=== PATIENT | female | born 1975 | race Caucasian/White ===

== ENCOUNTER 2018-10-09 15:53 | Emergency (ER) | payer OTHER ==
[~2018-10-09] VITALS: Ht 165.1 cm; Wt 50.8 kg
[2018-10-09] MEDS ORDERED: BUPROPION XL300 MG PO (16:17)
[2018-10-09] MEDS ORDERED: MONO-LINYAH1 EACH PO (16:17)
[2018-10-09] MEDS ORDERED: KETOROLAC TROME10 MG PO (16:39)
[2018-10-09] MEDS ORDERED: BACLOFEN10 MG PO (16:39)
== END 2018-10-09 16:48 | disposition home or self-care (01) ==
LOC: ED 15:53
DX: M99.01 Segmental and somatic dysfunction of cervical region (principal); M99.02 Segmental and somatic dysfunction of thoracic region; M62.838 Other muscle spasm; Z88.0 Allergy status to penicillin; Z79.899 Other long term (current) drug therapy
CPT/HCPCS: 99283

== ENCOUNTER 2021-09-30 17:23 | Emergency (ER) | payer OTHER ==
[~2021-09-30] VITALS: Ht 165.1 cm; Wt 50.8 kg
[~2021-09-30 17:23] MED LIST: BACLOFEN10 MG PO; BUPROPION XL300 MG PO; KETOROLAC TROME10 MG PO; MONO-LINYAH1 EACH PO
[2021-09-30] MEDS ORDERED: CARAFATE1 GM PO (20:18)
[2021-09-30] MEDS ORDERED: ZOFRAN4 MG PO (20:18)
[2021-09-30] MEDS ORDERED: HYDROCODON-ACE1 EA10 PO (20:18)
== END 2021-09-30 20:44 | disposition home or self-care (01) ==
LOC: ED 17:23
DX: K29.70 Gastritis, unspecified, without bleeding (principal); Z88.0 Allergy status to penicillin; Z79.899 Other long term (current) drug therapy; Z20.822 Contact with and (suspected) exposure to COVID-19
CPT/HCPCS: 80053; 81001; 83690; 84703; 85025; 96374; 96375; 99284-25; A9270; C9803; J2270; J2405; J7030; U0003

== ENCOUNTER 2023-10-10 06:58 | Day surgery (SDC) | payer OTHER ==
[2023-09-17 14:48] VITALS: BP 113/75
[~2023-10-10] VITALS: Ht 165.1 cm; Wt 58.2 kg
--- NOTE | ~2023-10-10 | OR ---
[facility] [address] [place], [place] [address] Draft DATE OF OPERATION: 10/10/2023 SURGEON: Lexus Holm MD SECURITY SME: [place]. PREOPERATIVE DIAGNOSIS: Pelvic pain. POSTOPERATIVE DIAGNOSES: Pelvic pain, pelvic endometriosis. PROCEDURES: Laparoscopy with laser fulguration of endometriosis, excision of posterior cul-de-sac nodule. ANESTHESIA: General ET. ESTIMATED BLOOD LOSS: Minimal. DRAINS: None. INDICATIONS AND FINDINGS: The patient is a 48-year-old female who has been having increasing pelvic pain. She does have a history of endometriosis. At this point, she desired diagnosis as well as treatment. At the time of surgery, exam under anesthesia was completely normal. At the time of laparoscopy, there was endometriosis noted over the surface of the left ovary, small area on the left tube as well as in the left anterior cul-de-sac. There was a small spot on the right tube and the right sidewall above the pelvic brim. There was also a small area in the right posterior ovarian fossa. There was a nodule in the posterior cul-de-sac, which was excised. The appendix appeared normal. PROCEDURE IN DETAIL: The patient was prepped and draped in the dorsal lithotomy position. A weighted speculum was placed. The anterior lip of the cervix was visualized and grasped with single-tooth tenaculum. The Hulka clamp was then placed and the tenaculum and speculum PATIENT NAME: AMMY SANDHU LUKAS OPERATIVE REPORT DATE OF : 75 REPORT #: [id number] PHYSICIAN: LEXUS HOLM MD PCP: SEGUNDO VILLALPANDO REPORT IS CONFIDENTIAL AND NOT TO BE RELEASED WITHOUT AUTHORIZATION [facility] [address] [place], [place] [address] Draft were removed. Attention was directed above. The infraumbilical area was injected with 0.5% Marcaine plain. An incision made with a knife. Each layer was serially elevated and incised until the fascia was opened and identified and stay sutures of 0 Vicryl were placed. Peritoneum was opened bluntly. The Romel cannula was placed. The balloon inflated. The abdomen was inflated with carbon dioxide gas. The abdomen was appropriately distended. The pelvis was visualized and the secondary port was placed on the left side slightly below the level of the umbilicus and lateral. This area was transilluminated, injected with the Marcaine, incision made with a knife and a 5 mm port placed under direct vision. The pelvis was visualized and the endometriosis noted. It was felt that a secondary another port was necessary on the right side. This was placed in the same manner and essentially at the same location. The CO2 laser fiber was then used. This was used to power of 10 on SuperPulse. The laser was used to coagulate the area on the right tube, the right abdominal sidewall and the right posterior ovarian fossa. This was also used for the left anterior cul-de-sac and over the surface of the left ovary and the surface of the left tube. Good hemostasis was noted for all of these. The nodule in the posterior cul-de-sac was grasped and was undermined using Metzenbaum scissors and excised completely and the specimen retrieved. The abdomen was then copiously irrigated, inspected, and there was no evidence of any further endometriosis found. There was good hemostasis. Overall, the sites treated including the cul-de-sac and the procedure was terminated. The instruments removed from the abdomen after allowing as much CO2 as possible to escape. The fascial incision at the umbilicus was re-identified. It was closed with a running suture of 0 Vicryl. The stay sutures were tied across as well. The skin incisions were closed with subcuticular sutures of 3-0 Vicryl Rapide. Attention was directed down below and the instruments removed. There was no evidence of any ongoing bleeding. A Mora catheter which had been placed at the beginning of the case was removed. All sponge and needle counts were correct. She tolerated the procedure well and was taken to recovery room in good condition. MD RAQUEL English/ARIANAL /[id number] Copies: PATIENT NAME: AMMY SANDHU OPERATIVE REPORT DATE OF : 75 REPORT #: [id number] PHYSICIAN: LEXUS HOLM MD PCP: SEGUNDO VILLALPANDO REPORT IS CONFIDENTIAL AND NOT TO BE RELEASED WITHOUT AUTHORIZATION [facility] [address] [place] [id number] Draft ~ PATIENT NAME: EDSONAMMY OPERATIVE REPORT DATE OF : 75 REPORT #: [id number] PHYSICIAN: LEXUS HOLM MD PCP: SEGUNDO VILLALPANDO REPORT IS CONFIDENTIAL AND NOT TO BE RELEASED WITHOUT AUTHORIZATION
[~2023-10-10 06:58] MED LIST changes: +ACID CONTROLLER20 MG PO; +CARAFATE1 GM PO; +HYDROCODON-ACE1 EA10 PO; +OMEPRAZOLE20 MG PO; +ZOFRAN4 MG PO
[2023-10-10 07:13] VITALS: BP 112/70
--- NOTE | 2023-10-10 07:49 | NUR ---
requested and put warm blanket on.
--- NOTE | 2023-10-10 11:09 | NUR ---
10/10/23 1109 Lakisha Choi 1029 PT ARRIVED IN PACU NON RESPONSIVE TO NOXIOUS STIMULI WITH OPA IN PLACE. CHIN LIFT HELD BY RN. 1034 PT REACTIVE. OPA REMOVED. 1035 C/O FEELING COLD. WARM BLANKETS GIVEN. 1046 C/O ABD PAIN 3/10. TYLENOL 1GM GIVEN IV. 1057 C/O INCREASED ABD PAIN 5/10. FENTANYL 25MCG GIVEN IVP. 1102 NO CHANGE IN PAIN LEVEL. FENTANYL 25MCG GIVEN IVP. 1108 RESTING. REU.
[2023-10-10 11:20] VITALS: BP 99/58
--- NOTE | 2023-10-10 11:47 | NUR ---
1120: PT RETURNS TO UNIT FROM PACU VIA STRETCHER, DROWSY ON ARRIVAL. FOLLOWS COMMANDS AND ANSWERS QUESTIONS APPROPRIATELY. VSS, RESP EVEN AND UNLABORED ON RA. REPORTS BRYSON PAIN LEVEL, /10. DENIES NAUSEA AND ICE WATER PROVIDED AT REQUEST. BEAR HUGGER AND SCDS IN PLACE AND TURNED ON. LAP SITE DRESSINGS X3 C/D/I. ATTENTIVE AT THE BEDSIDE. POC DISCUSSED AND PT AGREEABLE. COMFORTABLE WITHOUT NEEDS, CALL LIGHT WITHIN REACH
[2023-10-10 12:25] VITALS: BP 110/68
[2023-10-10 13:30] VITALS: BP 111/67
--- NOTE | 2023-10-10 13:59 | NUR ---
1355: PT COMFORTABLE WITHOUT NEEDS, USES CELLPHONE WHILE IN STRETCHER. REG LUNCH TRAY ORDERED. PT DECLINES TO DRESS AT THIS TIME. TO CALL RN WHEN READY. CALL LIGHT WITHIN REACH
[2023-10-10 14:41] VITALS: BP 109/64
--- NOTE | 2023-10-10 15:03 | NUR ---
1445: PT AWAKE AND ALERT. TO BR INDEPENDENTLY. BACK TO STRETCHER AND DRESSES WITH MINIMAL ASSIST. SL REMOVED WITH CATH TIP INTACT AND PRESSURE APPLIED TO SITE, WNL. DC INSTRUCTIONS PROVIDED AND DISCUSSED. PT VOICES UNDERSTANDING AND DENIES QUESTIONS AND CONCERNS. AWAITS HUSBANDS ARRIVAL
--- NOTE | 2023-10-10 15:27 | NUR ---
SIVA 1525: PT IS TAKEN TO PERSONAL VEHICLE VIA WC. SHE IS ABLE TO TRANSFER HERSELF WITHOUT ISSUES.
--- NOTE | 2023-10-16 13:03 | PATH ---
[facility] [address] [place], [place] [address] Signed SPECIMEN(S): A CUL DE SAC ENDOMETRIOSIS NODULE SPECIMEN SOURCE: A. CUL DE SAC ENDOMETRIOSIS NODULE CLINICAL HISTORY: Pelvic pain, dysmenorrhea, history of endometriosis FINAL PATHOLOGIC DIAGNOSIS: Cul-de-sac endometriosis nodule: - Benign fibroadipose and vasculature with mild chronic and slight active inflammation. - Negative for evidence of endometriosis on these sections. JVR:clv MICROSCOPIC EXAMINATION: Histologic sections of all submitted blocks are examined by light microscopy. These findings, together with the gross examination, support the pathologic diagnosis. GROSS DESCRIPTION: The specimen, labeled and designated "Varun Allen, " and designated on the requisition "cul-de-sac endometriosis nodule," is received in formalin and consists of one white-rogers membranous tissue fragment that is 1.4 x 0.6 x 0.3 cm. The specimen is entirely submitted in (A1). FB (under the direct supervision of a pathologist) The Gross Description was prepared using a voice recognition system. The report was reviewed for accuracy; however, sound-alike word errors, addition and/or deletions may occur. If there is any question about this report, please contact Client Services. PERFORMING LABORATORY: Technical component was performed by [facility], [address] [place] [id number] (CLIA# [id number]). Professional interpretation was performed by [facility] - [facility], [address] [place] [id number] (CLIA#: [id number]). Diagnostician: Lázaro Cruz MD Pathologist Electronically Signed 10/16/2023 PATIENT NAME: AMMY ALLEN PATHOLOGY DATE OF : 75 REPORT #: [id number] PHYSICIAN: [facility] PCP: SEGUNDO VILLALPANDO REPORT IS CONFIDENTIAL AND NOT TO BE RELEASED WITHOUT AUTHORIZATION [address] [address] Signed Copies: ~ PATIENT NAME: AMMY ALLEN PATHOLOGY DATE OF : 75 REPORT #: [id number] PHYSICIAN: [facility] PCP: SEGUNDO VILLALPANDO REPORT IS CONFIDENTIAL AND NOT TO BE RELEASED WITHOUT AUTHORIZATION
== END 2023-10-10 15:24 | disposition home or self-care (01) ==
LOC: DS 06:58
PROVIDERS: ATTEND Obstetrics & Gynecology
PROC: 0U504ZZ Destruction of Right Ovary, Percutaneous Endoscopic Approach (ICD-10-PCS; principal; 2023-10-10 09:45)
DX: N80.351 Endometriosis of the right pelvic sidewall, unspecified depth (principal)
CPT/HCPCS: 00840; A9270; J0131; J0330; J1100; J2250; J2405; J2704; J2765; J3010; J3490; J7121

== ENCOUNTER 2024-04-23 05:45 | Day surgery (SDC) | payer OTHER ==
[2024-04-21 09:40] VITALS: BP 117/78
[~2024-04-23] VITALS: Ht 165.1 cm; Wt 61.8 kg
[2024-04-23] VITALS (13 sets, daily range): BP systolic 92–108; BP diastolic 48–66
[~2024-04-23 05:45] MED LIST changes: +DIM PLUS CDG C1 EACH PO; +IRON325 M1 PO; +LACTATED RINGER'S 1,000 ML IV SCH; +YAZ 28 TABLET1 EACH PO; +ZYRTEC10 MG PO; +[UNRECOGNIZED DRUG - OTHER] PO
[2024-04-23] MEDS ORDERED: OXYCODONE HCL5 MG PO (06:19)
[2024-04-23] MEDS ORDERED: LACTATED RINGER'S 1,000 ML IV ONE ×2 (06:32→08:20)
[2024-04-23] MEDS ORDERED: METOCLOPRAMIDE HCL 10 MG/2 ML SDV ONE (06:32)
[2024-04-23] MEDS ORDERED: FAMOTIDINE 20 MG/ 2 ML VIAL ONE (06:32)
[2024-04-23] MEDS ORDERED: propofoL 200 MG/20 ML VIAL ONE (06:32)
[2024-04-23] MEDS ORDERED: MIDAZOLAM HCL 2 MG/2 ML VIAL ONE (06:32)
[2024-04-23] MEDS ORDERED: ondansetron HCL 4 MG/2 ML VIAL ONE (06:32)
[2024-04-23] MEDS ORDERED: fentaNYL citrate 100 MCG/2 ML VIAL ONE (06:32)
[2024-04-23] MEDS ORDERED: KETOROLAC TROMETHAMINE 30 MG/ML VIAL ONE (06:32)
[2024-04-23] MEDS ORDERED: DEXAMETHASONE SOD PHOS 4 MG/ML VIAL ONE (06:32)
[2024-04-23] MEDS ORDERED: IBLOOD GLUCOSE TEST STRIP 1 EA TEST VI PRN ×2 (07:00→07:45)
[2024-04-23] MEDS ORDERED: HEParin SOD (PORCINE) 5,000 UNIT/0.5 ML SYR SUB-Q SCH ×2 (07:00→09:00)
[2024-04-23] MEDS ORDERED: FAMOTIDINE 20 MG/ 2 ML VIAL IV SCH (07:00)
[2024-04-23] MEDS ORDERED: LIDOCAINE HCL 1% 5 ML SDV INJ ONE (07:00)
[2024-04-23] MEDS ORDERED: METOCLOPRAMIDE HCL 10 MG/2 ML SDV IV SCH (07:00)
[2024-04-23] MEDS ORDERED: PROCHLORPERAZINE EDISYLATE 10 MG/2 ML VIAL IV PRN ×2 (07:45→08:45)
[2024-04-23] MEDS ORDERED: MORPHINE SULFATE 10 MG/ML VIAL IV PRN ×2 (07:45→08:45)
[2024-04-23] MEDS ORDERED: droPERidol 5 MG/2 ML VIAL IV PRN (07:45)
[2024-04-23] MEDS ORDERED: fentaNYL citrate 50 MCG/ML SDV IV PRN (07:45)
[2024-04-23] MEDS ORDERED: METOCLOPRAMIDE HCL 10 MG/2 ML SDV IV PRN ×2 (07:45→08:45)
[2024-04-23] MEDS ORDERED: ondansetron HCL 4 MG/2 ML VIAL IV PRN ×2 (07:45→08:45)
[2024-04-23] MEDS ORDERED: NALOXONE HCL 0.4 MG SYR IV PRN ×2 (07:45→08:45)
[2024-04-23] MEDS ORDERED: CEFAZOLIN SOD 1,000 MG/10 ML VIAL ONE ×2 (08:12)
--- NOTE | 2024-04-23 08:36 | NUR ---
04/23/24 0836 Cady Han 0835: PATIENT REACHING TOWARD HER MOUTH. SHE FOLLOWS DIRECTIONS FOR ORAL AIRWAY TO BE REMOVED.
[2024-04-23] MEDS ORDERED: ondansetron HCL 4 MG TAB PO PRN (08:45)
[2024-04-23] MEDS ORDERED: HYDROmorphone HCL 1 MG/ML SYR IV PRN (08:45)
[2024-04-23] MEDS ORDERED: LACTATED RINGER'S 1,000 ML IV SCH (08:45)
[2024-04-23] MEDS ORDERED: FAMOTIDINE 20 MG/ 2 ML VIAL IV PRN (08:45)
[2024-04-23 08:48] LABS: HEMATOCRIT 31.2 % (35.0-50.0); HEMOGLOBIN 10.1 g/dL (12.0-18.0); MCH 28.1 (27-36); MCHC 32.2 g/dl (30-36); MCV 87.2 fl (81-99); RBC 3.58 M/ul (4.3-5.7); RDW 14.7 (10.5-15.0)
--- NOTE | 2024-04-23 09:32 | NUR ---
PATIENT ARRIVED AT 0930. DICKINSON CATHETER INTACT WITH BALLOON INFLATED TO 15ML. VITALS ARE STABLE.
--- NOTE | 2024-04-23 09:45 | NUR ---
PT LYING IN BED, SLIGHTLY DROWSY, EASILY AROUSABLE. FAMILY AT THE BEDSIDE. PT STATES SHE FEELS THE URGE TO URINATE, PT UP TO BSC USING SARASTEDY, PT DENIES LIGHT HEADEDNESS AT THIS TIME, UNABLE TO VOID. NEW PAD AND MESH UNDERWEAR IN PLACE. PT BACK TO BED USING SARASTEDY. PT C/O NAUSEA, ANTINAUSEA MEDICATION GIVEN PER PT REQUEST. PT C/O 5/10 PAIN, REQUESTS PRN PAIN MEDICATION AND A HEAT PACK, BOTH GIVEN. PT REMAINS NPO, SWABS FOR MOISTURE. PT REMAINS DUE TO VOID AFTER SURGERY. DICKINSON REMAINS IN UTERUS, DRAINING SEROSANGUINOUS FLUID VIA GRAVITY. PT STATES NO QUESTIONS AT THIS TIME. SCDs IN PLACE, CPOX IN PLACE. CALL LIGHT WITHIN REACH.
--- NOTE | 2024-04-23 10:30 | NUR ---
VISITED DURING SPIRITUAL CARE ROUNDS. PT SLEEPY, SUPPORTED BY FAMILY MEMBER IN ROOM. SHORT VISIT TO ALLOW PT TO REST. PROVIDED PRAYER.
--- NOTE | 2024-04-23 10:53 | NUR ---
SPOKE WITH PRIMARY RN, RANJAN, PATIENT IS DROWSY AT THIS TIME. WILL COMPLETE ASSESSMENT WHEN SHE IS AWAKE, LIKELY AFTER LUNCH.
[2024-04-23 13:07] LABS: HEMATOCRIT 31.7 % (35.0-50.0); HEMOGLOBIN 10.4 g/dL (12.0-18.0); MCH 28.4 (27-36); MCHC 32.9 g/dl (30-36); MCV 86.4 fl (81-99); RBC 3.67 M/ul (4.3-5.7); RDW 14.6 (10.5-15.0)
--- NOTE | 2024-04-23 13:44 | NUR ---
PATIENT ALERT AND ORIENTED. DEMOGRAPHICS VERIFIED WITH PATIENT AND SPOUSE. PATIENT LIVES IN SINGLE LEVEL HOME WITH SPOUSE AND CHILDREN. PATIENT HAS NO DME. SHE NORMALLY DRIVES. SPOUSE IS ABLE TO ASSIST WITH TRANSPORTATION WHEN NEEDED. PATIENT DENIES FINANCIAL ISSUES. ABLE TO PAY UTILITIES, OBTAIN MEDS AND FOOD WITHOUT DIFFICULTY. PATIENT AND SPOUSE DENY NEEDS AT THIS TIME.
--- NOTE | 2024-04-23 13:45 | NUR ---
PT LYING IN BED AWAKE, VISITING WITH FAMILY. PT APPEARS LESS DROWSY AT THIS TIME. PT STATES PAIN IS 3-4/10 AND PRIMARILY IN THE LOWER BACK AT THIS TIME. PT REPOSITIONED TO LEFT SIDE WITH PILLOWS TO SUPPORT BACK. PT STATES THIS IS HEPING TO RELIEVE PRESSURE. PT STATES NO FURTHER NEEDS AT THIS TIME. CALL LIGHT WITHIN REACH.
--- NOTE | 2024-04-23 13:55 | NUR ---
PATIENT UP TO BSC AND BACK TO BED, SBA. PATIENT TOLERATED TRANSFER WELL. VITALS AND I&O'S DONE AND CHARTED. WARM BLANKET AND FRESH WARM PACK GIVEN. FAMILY IN ROOM. CALL LIGHT IN REACH. NO FURTHER NEEDS AT THIS TIME.
[2024-04-23] MEDS ORDERED: CEFAZOLIN SODIUM 2 GM/20 ML SYR IV SCH (14:00)
--- NOTE | 2024-04-23 15:19 | NUR ---
UR CLINICAL REVIEW: [facility]-MEETS CRITERIA FOR OBS STAY [facility] EXTENDED STAY RECOVERY 04/23/24 NO AUTH REQUIRED FOR EXTENDED STAY DISCHARGE WHEN STABLE 04/24/24
--- NOTE | 2024-04-23 16:47 | NUR ---
IN TO ROUND ON PT. PT RESTING IN BED ON LEFT SIDE. EYES CLOSED, RR EVEN AND UNLABORED. PT ON RA WITH O2 SATS AT 96%. IV INFUSING WNL. SCDs IN PLACE. NO NEEDS IDENTIFIED. CALL LIGHT IN REACH.
[2024-04-23 17:08] LABS: MCH 28.1 (27-36); MCHC 32.4 g/dl (30-36); MCV 86.9 fl (81-99); RBC 3.57 M/ul (4.3-5.7); RDW 14.4 (10.5-15.0)
--- NOTE | 2024-04-23 17:58 | OR ---
[facility] [address] [place], [place] [address] Signed DATE OF OPERATION: 04/23/2024 SURGEON: Sylvester Holm MD PREOPERATIVE DIAGNOSIS: Endometrial masses, menorrhagia. POSTOPERATIVE DIAGNOSIS: Endometrial masses, menorrhagia. Pending final pathology. Suspicious for polyp as well as a fibroid. PROCEDURE: Hysteroscopy, resection of endometrial masses. ANESTHESIA: General LMA. ESTIMATED BLOOD LOSS: 250 mL. DRAINS: Mora catheter inside the uterus. INDICATIONS AND FINDINGS: The patient is a 49-year-old female who has been having worsening menstrual pain as well as prolonged and heavy bleeding. Ultrasound was done, which showed endometrial masses. At the time of surgery, her uterus sounded to 7 cm. On hysteroscopy, there appeared to be a polyp protruding through the lower segment into the cervical area as well as a fibroid on the right upper fundus. After removal of these masses, however, she continued to have pretty heavy bleeding and a Mora catheter was placed inside the cavity to aid in hemostasis. DESCRIPTION OF PROCEDURE: The patient was prepped and draped in the dorsal lithotomy position. A weighted speculum was placed. The anterior lip of the cervix was visualized and grasped with single-tooth tenaculum. Hysteroscope was then placed and the cavity evaluated with the abnormal findings noted. The MyoSure REACH was then placed and the polyp easily removed. The fibroid was more difficult to remove using the REACH. The great majority of it was removed and the Myosure was removed. This was followed by uterine polyp forceps as well as a sharp curette which removed more tissue. Hysteroscopy Electronically Signed By: SYLVESTER HOLM MD 04/23/24 1758 PATIENT NAME: AMMY SANDHU OPERATIVE REPORT DATE OF : 75 REPORT #: [id number] PHYSICIAN: SYLVESTER HOLM MD PCP: SEGUNDO VILLALPANDO REPORT IS CONFIDENTIAL AND NOT TO BE RELEASED WITHOUT AUTHORIZATION [facility] [address] [place], [place] [address] Signed was repeated and more tissue removed. The Myosure was removed and again repeated treatment with the polyp forceps and the curettage was done again with more tissue. The cavity was re-evaluated and it did appear to be clean, but it was difficult to evaluate because of blood in the cavity. The procedure was terminated at that point. There continued to be a fair amount of bleeding through the cervix. Angle sutures of 0 chromic were placed at 3 and 9 o'clock in a [id number] manner. This did not improve the bleeding. A Mora catheter was then placed inside the uterus and the balloon inflated to 15 mL. This did appear to tamponade the great majority of the bleeding. This was used as a temporizing measure to determine if the bleeding could be managed without further surgery. The bleeding was observed and appeared to be nominal. The patient was taken to the recovery room in good condition. All sponge and needle counts were correct. She tolerated the procedure well. MD RAQUEL English/OWEN /[id number] Copies: ~ Electronically Signed By: SYLVESTER HOLM MD 04/23/24 1758 PATIENT NAME: AMMY SANDHU OPERATIVE REPORT DATE OF : 75 REPORT #: [id number] PHYSICIAN: SYLVESTER HOLM MD PCP: SEGUNDO VILLALPANDO REPORT IS CONFIDENTIAL AND NOT TO BE RELEASED WITHOUT AUTHORIZATION
--- NOTE | 2024-04-23 18:24 | NUR ---
PATIENT SITTING UP IN BED TALKING WITH FAMILY IN ROOM. VITALS AND I&O'S DONE AND CHARTED. CALL LIGHT IN REACH. NO FURTHER NEEDS AT THIS TIME.
--- NOTE | 2024-04-23 19:05 | NUR ---
REPORT RECEIVED FROM RANJAN HUDDLESTON. pt RESTING IN THE BED. NO NEEDS AT THIS TIME. CALL LIGHT WITHIN REACH. BOARD UPDATED.
--- NOTE | 2024-04-23 20:43 | NUR ---
TOOL DESIGN CHECKER OBTAINED VITALS. PT STATED SHE NEEDED TO VOID. TOOL DESIGN CHECKER SBA TO BATHROOM. I&O DOCUMENTED. TOOL DESIGN CHECKER GAVE PT 2 HOT PACKS REQUESTED BY PT. PT STATES NO FURTHER NEEDS AT THIS TIME. CALL LIGHT WITHIN REACH.
--- NOTE | 2024-04-23 22:20 | NUR ---
ASSESSMENT DONE. pt REFUSES PAIN MEDICATION AT THIS TIME. pt UP TO THE BR. MAGDALENO RED BLOOD IN THE DICKINSON. SCD'S ON WHEN BACK TO BED. IV ABX INFUSED, PER ORDER, SEE MAR. SCHEDULED MEDICATION ADMINISTERED, SEE NOV. WARM PACK PROVIDED. pt DENIES ANY OTHER NEEDS AT THIS TIME. CALL LIGHT WITHIN REACH. SBA FOR LINE/TUBE MANAGEMENT. WATER REFESHED. pt DENIES NAUSEA AT THIS TIME.
--- NOTE | 2024-04-23 23:15 | NUR ---
IN RM WITH CALL OR CONTACT CENTRE COACH TO CHECK ON DICKINSON THAT IS IN UTERUS. DICKINSON EMPTIED. 50 ML OF DARK RED BLOOD EMPTIED OUT OF CATHETER. pt DENIES ANY PAIN AT THIS TIME.
[2024-04-24] VITALS (10 sets, daily range): BP systolic 106–125; BP diastolic 58–74
--- NOTE | 2024-04-24 01:02 | NUR ---
CALL LIGHT ANSWERED. PT NEEDED TO VOID. LINE RUNNER SBA PT TO BATHROOM. PT ASSISTED BACK TO BED. CPOX RECONNECTED. LINE RUNNER OBTAINED AND RECORCED VITALS AND I&O. PT STATES NO FURTHER NEEDS AT THIS TIME. CALL LIGHT WITHIN REACH.
--- NOTE | 2024-04-24 04:00 | NUR ---
pt RESTING IN THE BED WITH EYES CLOSED. RR EVEN AND UNLABORED. CALL LIGHT WITHIN REACH.
--- NOTE | 2024-04-24 05:20 | NUR ---
pt MOVED TO MS ROOM 108 FROM 109 AT THIS TIME TO ALLOW FOR ADDITIONAL ROOMS FOR FBC. pt AND BELONGINGS IN ROOM, pt ORIENTED TO ROOM AND CALL LIGHT IN REACH. FORESTRY ENGINEER ALSO MADE AWARE.
--- NOTE | 2024-04-24 05:29 | NUR ---
pt RESTED THROUGH THE NIGHT. NO PAIN REPORTED. 50 ML EBL IN DICKINSON CATHETER. SBA TO BR. IVF INFUSING DURING THE NIGHT.
[2024-04-24 05:57] LABS: HEMOGLOBIN 8.9 g/dL (12.0-18.0); MCH 28.7 (27-36); MCHC 33.1 g/dl (30-36); MCV 86.6 fl (81-99); RBC 3.12 M/ul (4.3-5.7); RDW 14.5 (10.5-15.0)
--- NOTE | 2024-04-24 07:15 | NUR ---
REPORT RECIEVED FROM FLAQUITO WHITMORE. PT SITTING UP IN BED AND RESPONDS WHEN ADDRESSED. PTs AT BEDSIDE. PT DENIES ANY NEEDS AT THIS TIME. CALL LIGHT IN REACH. IV INFUSING WNL.
--- NOTE | 2024-04-24 07:51 | NUR ---
PATIENT IN BED AT THIS TIME. PATIENT NOTICED THAT HIGH SCHOOL GUIDANCE COUNSELOR MACHINE WAS NOT CONNECTED, ULTRASOUND TECH RECONNECTED CPOX. CALL LIGHT WITHIN REACH, NO FURTHER NEEDS AT THIS TIME.
--- NOTE | 2024-04-24 08:25 | NUR ---
IN ROOM WITH FLAQUITO YU AND DR. VELASQUEZ. DR. VELASQUEZ DEFLATES DICKINSON BALLOON BY 5ML. FLAQUITO YU ASKING DR. VELASQUEZ IF PTs IV FLUIDS CAN BE DC'd OR DECREASED. VERBAL ORDERS FROM DR. VELASQUEZ TO LEAVE IV AT TKO. IV FLUIDS DECREASED TO 15ML/HR. VERIFIED WITH READBACK. PT DENIES ANY OTHER NEEDS AT THIS TIME. CALL LIGHT IN REACH.
--- NOTE | 2024-04-24 09:35 | NUR ---
OLIVIA CONCURRENT CLINICAL REVIEW: [facility]-MEETS CRITERIA FOR OBS STAY [facility] EXTENDED STAY RECOVERY 04/23/24 NO AUTH REQUIRED FOR EXTENDED STAY DISCHARGE WHEN STABLE 04/25/24
--- NOTE | 2024-04-24 09:51 | NUR ---
IN TO ADMINISTER MEDICATION, SEE MAR. PT SITTING UP IN RECLINER AND REPORITNG TOILETING NEEDS. SBA FROM RECLINER TO RESTROOM AND BACK TO RECLINER. PT HAS STEADY GAIT. ASSESSMENT COMPLETE. LUNG SOUNDS CLEAR. BOWEL TONES ACTIVE. ABD SOFT AND NON-TENDER WITH PALPATION. PT DENIES NUMBNESS OR TINGLING IN ANY EXTREMITIES AT THIS TIME. PT DENIES PAIN AT THIS TIME. PEDAL PULSES PALPABLE AND EQUAL, STRONG. RADIAL PULSES PALPABLE AND EQUAL, STRONG. IVs FLUSH WNL. IV IN RIGHT WRIST INFUSING WNL. PT DENIES ANY OTHER NEEDS AT THIS TIME. CALL LIGHT IN REACH. PTs MOTHER IN ROOM.
--- NOTE | 2024-04-24 10:43 | NUR ---
IN WITH DR. VELASQUEZ. PT SITTING UP IN RECLINER VISITING WITH PTs MOTHER. PT RESPONDS WHEN ADDRESSED. DICKINSON DRAINED 10ML OF BRIGHT RED BLOOD. DR. VELASQUEZ DECREASES DICKINSON BALLOON BY REMOVING 5ML. DICKINSON REMAINS IN PTs UTERUS. PT DENIES ANY OTHER NEEDS AT THIS TIME. CALL LIGHT IN REACH.
--- NOTE | 2024-04-24 10:54 | NUR ---
VISITED DURING SPIRITUAL CARE ROUNDS. PT SUPPORTED BY MITER GRINDER OPERATOR IN ROOM. GOLF CLUB WEIGHER LISTENED EMPATHETICALLY PT TALKED OF RECENTLY RECEIVED UPSETTING NEWS; NORMALIZED EXPERIENCE, PROVIDED SUPPORTIVE PRESENCE, HOSPITALITY, PRAYER. PT AND MITER GRINDER OPERATOR EXPRESSED GRATITUDE.
--- NOTE | 2024-04-24 12:32 | NUR ---
IN THIS RN INFORMED PT HAS QUESTIONS REGARDING ALLERGIES. PT SITTING UP IN RECLINER. PT REPORTING ALLERGIES TO ONLY AUGMENTIN AND AZITHROMYCIN. ALLERGY LIST UPDATED. DICKINSON BAG EMPTIED 5ML OF RED BLOOD. HAT IN TOILET EMPTIED. FRESH ICE WATER PROVIDED. PT DENIES ANY OTHER NEEDS AT THIS TIME. CALL LIGHT IN REACH. PTs SON IN ROOM.
--- NOTE | 2024-04-24 14:14 | NUR ---
IN TO ADMINISTER MEDICATION, SEE MAR. PT LAYING IN BED AND RESPONDS WHEN ADDRESSED. ASSESSMENT COMPLETE. PT DENIES PAIN AT THIS TIME. PT DENIES ANY NAUSEA AT THIS TIME. DICKINSON CATHETER REMAINS IN UTERUS. SCANT AMOUNT OF BLOOD NOTED TO PER-PAD. VITALS COMPLETE. HAT IN TOILET EMPTIED. I&Os COMPLETE. ICE WATER, TEA AND WARM BLANKET PROVIDED PER PT REQUEST. PT DENIES ANY OTHER NEEDS AT THIS TIME. CALL LIGHT IN REACH. PTs AT BEDSIDE.
--- NOTE | 2024-04-24 16:45 | NUR ---
IN TO ROUND ON PT. FLAQUITO YU IN ROOM. PT LAYING IN BED SEMI-FOWLERS. PT CONVERSING WITH FLAQUITO YU AND PTs MOTHER. DICKINSON IN UTERUS EMPTIED 15ML OF BLOOD. HAT IN TOILET EMPTIED. PT DENIES ANY OTHER NEEDS AT THIS TIME. CALL LIGHT IN REACH.
--- NOTE | 2024-04-24 18:10 | NUR ---
IN WITH DR. VELASQUEZ. DR. VELASQUEZ REMOVED DICKINSON CATHETER FROM PTs UTERUS. DR. VELASQUEZ REQUESTING TO BE CALLED AT 199904/24/24 FOR UPDATE ON PT. VERBAL ORDERS FROM DR. VELASQUEZ TO PT, VERIFIED WITH READBACK. PT SL AT THIS TIME. ICE WATER AND WARM BLANKET PROVIDED PER PT REQUEST. 1827 VITALS AND I&Os COMPLETE. PT DENIES ANY OTHER NEEDS AT THIS TIME. CALL LIGHT IN REACH.
--- NOTE | 2024-04-24 19:18 | NUR ---
pt CALLED AND ASKED IF SHE COULD GET ANOTHER PILLOW. DIRECTOR OF FINANCIAL AID BROUGHT pt A PILLOW. pt HAS CALL LIGHT AND IS DOING OKAY
--- NOTE | 2024-04-24 19:30 | NUR ---
REPORT RECIEVED FROM DAY SHIFT RN. PATIENT RESTING IN BED WITH VERY MINIMAL BLEEDING NOTED IN ADOLFO PAD. PATIENT DENIES NEEDS AT THIS TIME. CALL LIGHT IN REACH.
--- NOTE | 2024-04-24 20:23 | NUR ---
PATIENT DCd WITH . VERBAL AND WRITTEN INSTRUCTIONS PROVIDED. PATIENT VERBALIZES UNDERSTANDING. BOTH IVs DCd WNL WITH TIP INTACT. BELONGINGS RETURNED. QUESTIONS ANSWERED. PATIENT DENIES ANY COMPLAINTS OR CONCERNS AT THIS TIME.
--- NOTE | 2024-04-30 17:17 | PATH ---
[facility] [address] [facility] [place], [place] [address] Signed SPECIMEN(S): A ENDOMETRIAL POLYP AND FIBROID SPECIMEN SOURCE: A. ENDOMETRIAL POLYP AND FIBROID CLINICAL HISTORY: Endometrial mass; menorrhagia with regular cycle FINAL PATHOLOGIC DIAGNOSIS: Designated "endometrial polyp and fibroid": - Myxoid uterine mesenchymal tumor, favor myxoid leiomyosarcoma - Pending extradepartmental consultation, see comment COMMENT: Histologic sections demonstrate a uterine mesenchymal tumor composed of spindled cells arranged in fascicles with abundant myxoid stroma. There is overt nuclear cytologic atypia with foci of tumor cell necrosis. Up to four mitoses per 10 high-power whitehead are seen, including atypical forms. By immunohistochemistry, the lesional cells are positive for desmin, SMA (weak), and CD10, and negative for ALK. 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 A myxoid endometrial stromal sarcoma is considered in the differential diagnosis based on the positive staining for CD10, though this staining has been well-described in myxoid leiomyosarcomas. An inflammatory myofibroblastic sarcoma is also considered, and excluded by negative ALK staining. This case will be sent for expert consultation, and their findings will be reported in an addendum. Preliminary findings of a myxoid uterine mesenchymal tumor, and the intention to seek extra departmental consultation, were discussed with Dr. Holm on 04/30/2024. P MICROSCOPIC EXAMINATION: Histologic sections of all submitted blocks are examined by light microscopy. These findings, together with the gross examination, support the pathologic diagnosis. GROSS DESCRIPTION: PATIENT NAME: AMMY SANDHU PATHOLOGY DATE OF : 75 REPORT #: [id number] PHYSICIAN: ETHAN CORTES PCP: SEGUNDO VILLALPANDO REPORT IS CONFIDENTIAL AND NOT TO BE RELEASED WITHOUT AUTHORIZATION [facility] [address] [place], [place] [address] Signed The specimen, labeled and designated "Tiffany, endometrial polyp fibroid," is received in formalin and consists of a suction sock containing an aggregate of rogers-pink soft tissue (7.5 x 3.5 x 2.3 cm) admixed with hemorrhage. Separate in the container is an aggregate of red-brown, hemorrhagic soft tissue (7.5 x 7.5 x 1.7 cm in aggregate). Lean Leader sections of the suction sock contents and the entire separate tissue are submitted in A1-A32. Cassette Summary: (A1-A4) suction sock contents, sales utility representative (A5-A32) separate tissue, entirely KG (under the direct supervision of a pathologist) The Gross Description was prepared using a voice recognition system. The report was reviewed for accuracy; however, sound-alike word errors, addition and/or deletions may occur. If there is any question about this report, please contact Client Services. ADDITIONAL NOTES: Immunohistochemical and/or in situ hybridization studies if performed in this case included appropriate positive controls that reacted as expected. This test was developed and its performance characteristics determined by [facility]. It has not been cleared or approved by the U.S. Food and Drug Administration. The FDA has determined that such clearance or approval is not necessary. This test is used for clinical purposes. It should not be regarded as investigational or for research. [facility] is certified under the Clinical Laboratory Improvement Amendments of 1988 (CLIA) as qualified to perform high complexity clinical laboratory testing. PERFORMING LABORATORY: Technical component was performed by [facility], [address] [place] [address] (CLIA# [id number]). Professional interpretation was performed by [facility] - [facility] [address] [facility] [address] [id number] Diagnostician: Matthew Charlton MD Pathologist Electronically Signed 04/30/2024 Copies: PATIENT NAME: AMMY SANDHU [facility] PATHOLOGY DATE OF : 75 REPORT #: [id number] PHYSICIAN: ETHAN CORTES PCP: SEGUNDO VILLALPANDO REPORT IS CONFIDENTIAL AND NOT TO BE RELEASED WITHOUT AUTHORIZATION [facility] [address] [facility] [place], [place] [address] Signed ~ PATIENT NAME: AMMY SANDHU [facility]UKAS PATHOLOGY DATE OF : 75 REPORT #: [id number] PHYSICIAN: ETHAN PATHOLOGY PCP: SEGUNDO VILLALPANDO REPORT IS CONFIDENTIAL AND NOT TO BE RELEASED WITHOUT AUTHORIZATION
== END 2024-04-24 20:23 | disposition home or self-care (01) ==
LOC: DS 05:45 → MS 09:50 → DS 10:15 → MS 04-24 05:21 → DS 04-24 20:23
PROVIDERS: ATTEND Obstetrics & Gynecology
PROC: 0UB98ZZ Excision of Uterus, Via Natural or Artificial Opening Endoscopic (ICD-10-PCS; principal; 2024-04-23 07:30)
DX: C54.1 Malignant neoplasm of endometrium (principal); N84.0 Polyp of corpus uteri; N92.0 Excessive and frequent menstruation with regular cycle; Z88.1 Allergy status to other antibiotic agents
CPT/HCPCS: 00952; 36415; 85027; J0690; J0780; J1100; J1170; J1644; J1885; J2250; J2405; J2704; J2765; J3010; J7121

== ENCOUNTER 2024-06-07 14:39 | Emergency (ER) | payer OTHER ==
[~2024-06-07] VITALS: Ht 165.1 cm; Wt 62.2 kg
[~2024-06-07 14:39] MED LIST changes: -LACTATED RINGER'S 1,000 ML IV SCH; +OXYCODONE HCL5 MG PO
[2024-06-07 15:25] LABS: BASOPHILS 0.6 % (0-2); EOSINOPHILS 6.8 % (0-6); HEMATOCRIT 38.6 % (35.0-50.0); HEMOGLOBIN 12.8 g/dL (12.0-18.0); LYMPHOCYTES 31.8 % (24-44); MCH 28.4 (27-36); MCHC 33.1 g/dl (30-36); MCV 85.8 fl (81-99); MONOCYTES 8.2 % (0-12); NEUTROPHILS 52.6 % (39-80); PLATELET COUNT 322 K/uL (140-440); RDW 15.1 (10.5-15.0)
[2024-06-07 15:37] LABS: PARTIAL THROMBOPLASTIN TIME 23.5 Sec (22.9-41.3)
[2024-06-07 15:38] LABS: INR 1.03 (0.80-1.30); PROTIME 12.8 Sec (11.2-14.2)
[2024-06-07 15:42] LABS: ALBUMIN 3.6 g/dL (3.4-5.0); ALBUMIN/GLOBULIN RATIO 0.84 (1.1-2.4); ANION GAP 10.9 (7-21); BILIRUBIN, TOTAL 0.6 ng/dL (0.2-1.0); BUN/CREATININE RATIO 15.78 (6.0-28.6); CALCIUM 9.4 mg/dL (8.5-10.1); CREATININE, SERUM 0.76 mg/dL (0.55-1.02); POTASSIUM 3.9 mmol/L (3.5-5.1); PROTEIN, TOTAL 7.9 g/dL (6.4-8.2)
[2024-06-07] MEDS ORDERED: APIXABAN 5 MG TAB PO ONE (16:15)
[2024-06-07] MEDS ORDERED: ELIQUIS5 MG PO (16:31)
[2024-06-07 16:39] VITALS: BP 125/91
== END 2024-06-07 16:40 | disposition home or self-care (01) ==
LOC: ED 14:39
PROVIDERS: Emergency Medicine
DX: I82.621 Acute embolism and thrombosis of deep veins of right upper extremity (principal); Z88.1 Allergy status to other antibiotic agents; Z88.8 Allergy status to other drugs, medicaments and biological substances
CPT/HCPCS: 36415; 80053; 85025; 85610; 85730; 99283

== ENCOUNTER 2024-06-24 13:52 | Emergency (ER) | payer OTHER ==
[~2024-06-24] VITALS: Ht 165.1 cm; Wt 63.5 kg
--- OUTSIDE RECORDS SUMMARY | ~2024-06-24 | XMS | Continuity of Care Document ---
Demographics + + + | Address | [address] | | | [place] [address] | + + + | Preferred Language | Unknown | + + + | Marital Status | | + + + | Druze Affiliation | Unknown | + + + | Race | White | + + + | Ethnic Group | Not or | + + + Author + + + | Author | [place] | + + + | Organization | [facility] | + + + | Address | [address] | | | [place] [address] | + + + | Phone | | + + + Care Team Providers + + + + | Care Test Engineer Nuclear Equipment Name | Role | Phone | + + + + Unavailable | Unavailable | + + + + Allergies No information. Encounters No information. Functional Status No information. Immunizations No information. Medications No information. Problems + + + + | date | description | facility | + + + + | 2024-06-12 13:41:06 | Pain in lower extremities | [facility] | + + + + | 2024-06-12 14:15:06 | Pain in lower extremities | [facility] | + + + + | 2024-06-12 16:06:06 | Malignant neoplasm of | [facility] | | | uterus, part unspecified | | + + + + | 2024-06-12 16:06:06 | Acute embolism and | [facility] | | | thrombosis of right | | | | axillary vein (HCC) | | + + + + | 2024-06-12 16:06:06 | Pain in right leg | [facility] | + + + + | 2024-06-12 16:06:06 | Pain in left leg | [facility] | + + + + | 2024-06-12 16:06:06 | Acquired absence of both | [facility] | | | cervix and uterus | | + + + + Procedures No information. Results/Labs No information. Social History +--------+ + + | date | description | facility | +--------+ + + Vital Signs No information."
[~2024-06-24 13:52] MED LIST changes: +ELIQUIS5 MG PO; +HYDROXYZINE HCL25 MG PO
--- OUTSIDE RECORDS SUMMARY | 2024-06-24 13:59 | XMS ---
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 Joaquim VISIT COUNT (12 MO.) [address] ([place] ) TOTAL 4 NOTE: Visits indicate total known visits. ED/UCC VISIT TRACKING (12 MO.) 06/24/2024 13:53 [facility] TYPE: Emergency COMPLAINT: - RT LEG SWELLING 06/16/2024 09:44 [facility] TYPE: Emergency COMPLAINT: - LEG PAIN DIAGNOSES: - Allergy status to other antibiotic agents - Allergy status to other drugs, medicaments and biological substances - intermediate frame tender (current) use of anticoagulants - Pain in left leg - Pain in right leg 06/12/2024 12:40 [facility]) TYPE: Emergency DIAGNOSES: - Acquired absence of both cervix and uterus - Acute embolism and thrombosis of right axillary vein - Malignant neoplasm of uterus, part unspecified - Pain in left leg - Pain in right leg - Leg pain - Pain in lower extremities 06/07/2024 14:39 [facility] TYPE: Emergency COMPLAINT: - ARM PAIN DIAGNOSES: - Acute embolism and thrombosis of deep veins of right upper extremity - Allergy status to other antibiotic agents - Allergy status to other drugs, medicaments and biological substances - Pain in right arm INPATIENT VISIT TRACKING (12 MO.) No inpatient visits to display in this time frame [email or web address]
[2024-06-24 15:09] LABS: BASOPHILS 0.6 % (0-2); EOSINOPHILS 8.7 % (0-6); HEMOGLOBIN 12.9 g/dL (12.0-18.0); LYMPHOCYTES 40.6 % (24-44); MCH 28.2 (27-36); MCHC 33.1 g/dl (30-36); MCV 85.1 fl (81-99); NEUTROPHILS 42.1 % (39-80); PLATELET COUNT 207 K/uL (140-440); RBC 4.58 M/ul (4.3-5.7); RDW 15.3 (10.5-15.0)
[2024-06-24 15:24] LABS: ALBUMIN 3.7 g/dL (3.4-5.0); ALBUMIN/GLOBULIN RATIO 0.95 (1.1-2.4); ANION GAP 10.6 (7-21); BILIRUBIN, TOTAL 0.7 ng/dL (0.2-1.0); CALCIUM 9.7 mg/dL (8.5-10.1); CREATININE, SERUM 0.7 mg/dL (0.55-1.02); POTASSIUM 3.6 mmol/L (3.5-5.1); PROTEIN, TOTAL 7.6 g/dL (6.4-8.2)
[2024-06-24 17:11] VITALS: BP 123/88
== END 2024-06-24 17:06 | disposition home or self-care (01) ==
LOC: ED 13:52
PROVIDERS: Emergency Medicine
DX: M79.604 Pain in right leg (principal); M79.89 Other specified soft tissue disorders; Z86.718 Personal history of other venous thrombosis and embolism; Z88.1 Allergy status to other antibiotic agents; Z79.01 Long term (current) use of anticoagulants
CPT/HCPCS: 36415; 73701; 80053; 85025; 99284-25; Q9967